=== PATIENT | female | born 1940 | race African-American/Black ===

== ENCOUNTER 2017-07-13 20:59 | Emergency (ER) | payer MEDICARE, MEDICAID ==
[~2017-07-13] VITALS: Ht 162.6 cm; Wt 79.4 kg
[2017-07-13] MEDS ORDERED: MORPHINE SULFATE 4 MG/1 ML DISP.SYRIN IM ONE (21:45)
[2017-07-13] MEDS ORDERED: ONDANSETRON 4 MG/2 ML VIAL IM ONE (21:45)
[2017-07-13] MEDS ORDERED: MORPHINE SULFATE 4 MG/1 ML DISP.SYRIN ONE (22:04)
[2017-07-13] MEDS ORDERED: ONDANSETRON 4 MG/2 ML VIAL ONE (22:05)
--- NOTE | 2017-07-13 23:37 | NUR ---
Patient discharged to home in stable conditon. Written and verbal after care instructions given. Patient verbalizes understanding of instructions.
== END 2017-07-13 23:38 | disposition home or self-care (01) ==
LOC: ER 21:01
DX: H66.92 Otitis media, unspecified, left ear (principal); Z88.0 Allergy status to penicillin; Z88.2 Allergy status to sulfonamides
CPT/HCPCS: 96372 ×2; 99284; A4663; J2270; J2405

== ENCOUNTER 2017-07-19 17:02 | Inpatient (IN) | payer MEDICARE, MEDICAID ==
[~2017-07-19] VITALS: Ht 165.1 cm; Wt 68.0 kg
[2017-07-19] MEDS ORDERED: PREVACID PO (17:21)
[2017-07-19] MEDS ORDERED: LISINOPRIL PO (17:21)
[2017-07-19 17:58] LABS: BASOPHILS # (AUTO) 0.1 K/uL (0.0-8.0); BASOPHILS % (AUTO) 1.1 % (0.0-2.0); EOSINOPHILS # (AUTO) 0.1 K/uL (0.0-0.7); EOSINOPHILS % (AUTO) 2.7 % (0.0-7.0); HEMATOCRIT 40.6 % (31.2-41.9); HEMOGLOBIN 13.6 g/dL (10.9-14.3); LYMPHOCYTES # (AUTO) 1.8 K/uL (20.0-40.0); LYMPHOCYTES % (AUTO) 33.9 % (20.5-51.5); MEAN CORPUSCULAR HEMOGLOBIN 29.3 uug (24.7-32.8); MEAN CORPUSCULAR HGB CONC 33 g/dL (32.3-35.6); MEAN CORPUSCULAR VOLUME 87.6 fL (75.5-95.3); MONOCYTES # (AUTO) 0.5 K/uL (2.0-10.0); NEUTROPHILS # (AUTO) 2.8 K/uL (1.8-8.9); NEUTROPHILS % (AUTO) 52.3 % (38.5-71.5); PLATELET COUNT (AUTO) 210 K/uL (179-408); RED BLOOD CELL COUNT(AUTO) 4.63 MIL/uL (3.63-4.92); WHITE BLOOD COUNT (AUTO) 5.5 K/uL (3.8-11.8)
[2017-07-19 18:04] LABS: CARBON DIOXIDE 28 mmol/L (21-32); CHLORIDE 108 mmol/L (98-107); GLUCOSE 124 mg/dL (74-106); POTASSIUM 3.5 mmol/L (3.5-5.1); UREA NITROGEN, BLOOD 16 mg/dL (7-18)
--- NOTE | 2017-07-19 18:08 | NUR ---
PT IS IN ROOM #1B. DR MCKEON EVALUATED THE PT.
[2017-07-19 18:18] LABS: ALANINE AMINOTRANSFERASE 25 U/L (14-59); ALKALINE PHOSPHATASE 84 U/L (50-136); ASPARTATE AMINOTRANSFERASE 18 U/L (15-37); BILIRUBIN,DIRECT 0.1 mg/dL (0.0-0.2); BILIRUBIN,TOTAL 0.4 mg/dL (0.2-1.0); TOTAL PROTEIN, SERUM 7.4 g/dL (6.4-8.2)
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
--- NOTE | 2017-07-19 19:39 | NUR ---
Solange with crisis team at bedside for evaluation.
--- NOTE | 2017-07-19 20:09 | NUR ---
Pt placed on 5150 for gravely disabled. Admission to MHU pending.
--- NOTE | 2017-07-19 21:21 | NUR ---
PT RESTING COMFORTABLY. AWAITING BED ASSIGNMENT FOR ADMISSION
--- NOTE | 2017-07-19 21:59 | NUR ---
Assumed care of patient. Patient awaiting inpatient admission to Mental health unit. All patient eneds attended and met.
--- NOTE | 2017-07-19 22:01 | NUR ---
Report given to Bird MONTEIRO on MHU
--- NOTE | 2017-07-19 22:48 | NUR ---
Pt. admitted to MHU , under care of Dr. Arreola/Lisette Belongs List completed
[2017-07-19] MEDS ORDERED: MAG HYDROX/AL HYDROX/SIMETH 30 ML LIQUID UDC PO PRN (23:15)
[2017-07-19] MEDS ORDERED: ACETAMINOPHEN 325 MG TABLET PO PRN (23:15)
[2017-07-19] MEDS ORDERED: CLONAZEPAM 0.5 MG TABLET PO PRN (23:15)
[2017-07-19] MEDS ORDERED: MAGNESIUM HYDROXIDE 30 ML LIQUID UDC PO PRN (23:15)
[2017-07-19] MEDS ORDERED: TEMAZEPAM 7.5 MG CAPSULE PO PRN (23:15)
[2017-07-20 00:30] VITALS: BP 132/82
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
[2017-07-20 07:30] VITALS: BP 103/50
[2017-07-20] MEDS: risperiDONE 0.25 MG TABLET PO SCH ×2 (11:11→16:57)
[2017-07-20 17:08] VITALS: BP 98/59
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
[2017-07-21] MEDS: PANTOPRAZOLE SODIUM 40 MG TABLET.DR PO SCH (06:03)
--- NOTE | 2017-07-21 06:52 | NUR ---
PATIENT SLEPT FOR APPROX 6.30 HRS THOROUGH THE NIGHT.
[2017-07-21 07:58] VITALS: BP 94/53
[2017-07-21] MEDS: risperiDONE 0.25 MG TABLET PO SCH ×2 (08:35→17:33)
[2017-07-21 15:58] VITALS: BP 106/55
[2017-07-21 21:16] VITALS: BP 120/67
--- NOTE | 2017-07-21 23:19 | NUR ---
RECEIVED PATIENT IN THE DAY ROOM WATCHING TV AND INTERACTING WITH STAFF. SHE IS A/O X 2 AND ABLE TO MAKE HER NEEDS KNOW. SHE IS ABLE TO AMBULATE WITH STEADY GAIT. SHE IS LESS WITHDRAWN AND LESS DEPRESSED MOOD NOTED AT THIS TIME. POOR INSIGHT; HOWEVER, SHE DENIES A/H OR VH AT THIS TIME. SAFETY EMPHASIS. PATIENT WAS ENCOURAGED TO VERBALIZED FEELINGS.
[2017-07-22] MEDS: PANTOPRAZOLE SODIUM 40 MG TABLET.DR PO SCH (06:11)
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
[2017-07-22 07:30] VITALS: BP_SYST 10; BP_SYST 108; BP_DIAS 53
[2017-07-22] MEDS: risperiDONE 0.25 MG TABLET PO SCH ×3 (08:12→16:01)
--- NOTE | 2017-07-22 15:04 | NUR ---
Initial DC Plan: Patient currently lives at home with an older woman [[address] [place] [address]. [phone]]. Patient stated that she would not like any family or friends contacted at this time. SW will follow up with MD and patient to discuss most appropriate discharge plans. SW will form a safe and proper discharge.
--- NOTE | 2017-07-22 15:37 | NUR ---
Firearms Reporting: CHRISTIE submitted Mental Health Report to [employer] on 07/22.
[2017-07-22 17:17] VITALS: BP 105/57
--- NOTE | 2017-07-22 18:48 | NUR ---
PT HAS BRIGHT AFFECT, CALM, COOPERATIVE, WONDERS THE UNIT AND IS VISIBLE IN THE LOUNGE. PT PARTICIPATES IN GROUPS AND IS MEDICATION COMPLIANT. PT BED IS AT THE LOWEST LOCKED POSITION FOR SAFETY. PT WEARS NON SKID SOCKS, ROOM IS FREE OF CLUTTER.
[2017-07-22 20:12] VITALS: BP 103/53
--- NOTE | 2017-07-22 22:00 | NUR ---
received to care, watching tv with peers, pleasant and appropriate, upon approach. compliant with medications and staff direction. PRN restoril given for insomnia at 2056. as of 2199, she appears to be asleep, in bed. no distress noted. will continue to monitor closely.
--- NOTE | 2017-07-23 06:00 | NUR ---
slept 7.0 hours, total.
[2017-07-23] MEDS: PANTOPRAZOLE SODIUM 40 MG TABLET.DR PO SCH (06:59)
[2017-07-23 08:00] VITALS: BP 105/56
[2017-07-23] MEDS: risperiDONE 0.25 MG TABLET PO SCH ×3 (08:46→17:47)
[2017-07-23 16:00] VITALS: BP 125/60
[2017-07-23 20:03] VITALS: BP 112/67
--- NOTE | 2017-07-23 22:00 | NUR ---
patient seen and in TV room pleasant and cooperative, converses with peers and staff, able to redirect easily. no distress noted.
[2017-07-24] MEDS: PANTOPRAZOLE SODIUM 40 MG TABLET.DR PO SCH (06:01)
[2017-07-24 07:30] VITALS: BP 114/50
[2017-07-24] MEDS: risperiDONE 0.25 MG TABLET PO SCH ×3 (08:57→17:28)
[2017-07-24 15:00] VITALS: BP 113/60
[2017-07-24 20:17] VITALS: BP 121/58
[2017-07-25] MEDS: PANTOPRAZOLE SODIUM 40 MG TABLET.DR PO SCH (07:00)
[2017-07-25 07:30] VITALS: BP 116/62
[2017-07-25] MEDS: risperiDONE 0.25 MG TABLET PO SCH ×3 (08:34→17:47)
[2017-07-25 15:15] VITALS: BP 102/51
[2017-07-25 20:00] VITALS: BP 145/58
--- NOTE | 2017-07-26 06:09 | NUR ---
GPS/NSG PATIENT VISIBLE THIS MORNING PLEASANT AT FIRST, COOPERATIVE TOOK A SHOWER. PATIENT BEGAN TO ASK FOR A WHITE LONG SLEEVE SHIRT, STAFF SEARCHED IN BELONGINGS WELL THE CHART FOR ANY RECORD OF A WHITE SHIRT. NO WHITE SHIRT LISTED. PATIENT STATED SHE WAS GOING TO FILE A GRIEVANCE, STAFF MADE ATTEMPTS TO DEMONSTRATE THERE WAS NO RECORD OF A WHITE SHIRT HOWEVER PATIENT REMAINED ANGRY AND CONTINUED TO MAKE THREATS. PATIENT REDIRECTED, WILL CONTINUE TO MONITOR FOR SAFETY.
[2017-07-26] MEDS: PANTOPRAZOLE SODIUM 40 MG TABLET.DR PO SCH (06:22)
[2017-07-26 07:30] VITALS: BP 102/53
[2017-07-26] MEDS: risperiDONE 0.5 MG TABLET PO SCH ×2 (08:36→16:59)
[2017-07-26] MEDS ORDERED: risperiDONE 0.25 MG TABLET PO SCH (09:00)
[2017-07-26 15:21] VITALS: BP 104/43
--- NOTE | 2017-07-26 16:23 | NUR ---
Gps/School Examiner- Patient had not mentioned about a long sleeve white shirt. Stayed most of the day in the activity room watching TV.
[2017-07-26 20:49] VITALS: BP 116/60
[2017-07-27] MEDS: PANTOPRAZOLE SODIUM 40 MG TABLET.DR PO SCH (06:52)
[2017-07-27 07:30] VITALS: BP 110/52
[2017-07-27] MEDS: risperiDONE 0.5 MG TABLET PO SCH ×2 (08:15→17:10)
[2017-07-27 15:23] VITALS: BP 111/52
[2017-07-27 20:14] VITALS: BP 113/60
[2017-07-28] MEDS: PANTOPRAZOLE SODIUM 40 MG TABLET.DR PO SCH (06:16)
[2017-07-28 07:30] VITALS: BP 115/60
[2017-07-28] MEDS: risperiDONE 0.5 MG TABLET PO SCH ×2 (08:30→17:47)
[2017-07-28 16:57] VITALS: BP 100/52
[2017-07-28 21:02] VITALS: BP 136/54
[2017-07-29] MEDS: PANTOPRAZOLE SODIUM 40 MG TABLET.DR PO SCH (06:35)
[2017-07-29 07:30] VITALS: BP 106/63
[2017-07-29] MEDS: risperiDONE 0.5 MG TABLET PO SCH ×2 (09:34→17:33)
[2017-07-29 16:37] VITALS: BP 112/56
[2017-07-29 20:10] VITALS: BP 107/86
[2017-07-29] MEDS ORDERED: BENZTROPINE MESYLATE 0.5 MG TABLET PO SCH (21:00)
--- NOTE | 2017-07-29 22:00 | NUR ---
received to care, watching tv with peers, pleasant and appropriate, upon approach. compliant with medications and staff direction. as of 2199, she appears to be asleep, in bed. no distress noted. will continue to monitor closely.
[2017-07-30] MEDS: PANTOPRAZOLE SODIUM 40 MG TABLET.DR PO SCH (06:26)
[2017-07-30 08:00] VITALS: BP 92/66
--- NOTE | 2017-07-30 08:42 | NUR ---
DC Note: Patient will be discharged home [[address] [facility] [place] [address]; [phone]] via taxi at 1pm. Patient is alert and oriented x4 and denies SI and HI. She is aware and agreeable to discharge plans. SW attempted to contact patient's daughter Hanane [[phone]] and alert her of discharge plans. However, there was no answer and the voicemail was full. Patient will follow up with her primary physician Dr. Doty [[address] [place] [address]; [phone]]. Patient was provided a list of referrals for outpatient psychiatrists including Dr. Arreola [[phone]], Dr. Lieberman [[phone]], and Dr. Fisher [[phone]]. Patient was also provided a referral for [facility] [[address] [place] [address]; ]. Patient was provided with additional outpatient mental health resources to [facility] , Casie Sousa , and the National Suicide Prevention Lifeline .
[2017-07-30] MEDS ORDERED: risperiDONE 0.25 MG TABLET PO SCH ×2 (09:00→21:00)
[2017-07-30] MEDS ORDERED: risperiDONE 0.5 MG TABLET PO SCH (09:00)
[2017-07-30 09:59] LABS: BASOPHILS % (AUTO) 1.1 % (0.0-2.0); EOSINOPHILS # (AUTO) 0.1 K/uL (0.0-0.7); MEAN CORPUSCULAR HGB CONC 34 g/dL (32.3-35.6); MONOCYTES # (AUTO) 0.4 K/uL (2.0-10.0)
[2017-07-30 10:11] LABS: EOSINOPHILS % (AUTO) 3.3 % (0.0-7.0); HEMATOCRIT 39.8 % (31.2-41.9); HEMOGLOBIN 13.5 g/dL (10.9-14.3); LYMPHOCYTES # (AUTO) 1.6 K/uL (20.0-40.0); LYMPHOCYTES % (AUTO) 37.6 % (20.5-51.5); MEAN CORPUSCULAR VOLUME 88.5 fL (75.5-95.3); MONOCYTES % (AUTO) 10.5 % (0.0-11.0); NEUTROPHILS % (AUTO) 47.5 % (38.5-71.5); PLATELET COUNT (AUTO) 181 K/uL (179-408); RED BLOOD CELL COUNT(AUTO) 4.49 MIL/uL (3.63-4.92); WHITE BLOOD COUNT (AUTO) 4.1 K/uL (3.8-11.8)
[2017-07-30 10:12] LABS: ALANINE AMINOTRANSFERASE 18 U/L (14-59); ALKALINE PHOSPHATASE 73 U/L (50-136); ASPARTATE AMINOTRANSFERASE 16 U/L (15-37); BILIRUBIN,TOTAL 0.4 mg/dL (0.2-1.0); CARBON DIOXIDE 29 mmol/L (21-32); CHLORIDE 105 mmol/L (98-107); GLUCOSE 109 mg/dL (74-106); MAGNESIUM 1.9 mg/dL (1.8-2.4); PHOSPHOROUS 2.9 mg/dL (2.5-4.9); POTASSIUM 4.2 mmol/L (3.5-5.1); TOTAL PROTEIN, SERUM 7.3 g/dL (6.4-8.2); UREA NITROGEN, BLOOD 13 mg/dL (7-18)
--- NOTE | 2017-07-30 14:20 | NUR ---
1350 dISCHARGED INSTRUCTION GIVEN TO PATIENT REGARDING MEDICATIONS TO CONTINUE AT HOME-PATIENT VERBALIZED UNDERSTANDING. PRESCRIPTION GIVEN- INTRUCTED PATIENT TO FILLED IT TO HER OWN PHARMACY. 1415- DISCHARGED PATIENT HOME VIA TAXI (VOUCHER).PATIENT ALERT AND OX3. DENIES SI/HI. NO HALLUCINATION/ NO DELUSION NOTED.
== END 2017-07-30 14:15 | disposition home or self-care (01) | DRG 885 ==
LOC: ER 17:02 → GPS 22:14
PROVIDERS: ADMIT Psychiatry & Neurology Psychiatry; ATTEND Internal Medicine
DX: F23 Brief psychotic disorder (principal); E87.0 Hyperosmolality and hypernatremia; F22 Delusional disorders; K21.9 Gastro-esophageal reflux disease without esophagitis; F41.9 Anxiety disorder, unspecified; I10 Essential (primary) hypertension; D86.9 Sarcoidosis, unspecified; Z88.0 Allergy status to penicillin; Z88.2 Allergy status to sulfonamides; R07.89 Other chest pain; Z87.440 Personal history of urinary (tract) infections; Z87.11 Personal history of peptic ulcer disease; Z86.14 Personal history of Methicillin resistant Staphylococcus aureus infection; Z85.3 Personal history of malignant neoplasm of breast; Z86.018 Personal history of other benign neoplasm
CPT/HCPCS: 36415; 70030-TC; 71010; 83735; 84100; 85025; 85730; 93005